=== PATIENT | female | born 1995 | race Caucasian/White ===

== ENCOUNTER 2021-02-02 20:27 | Emergency (ER) | payer MEDICAID ==
[~2021-02-02] VITALS: Ht 170.2 cm; Wt 63.6 kg
[2021-02-02] MEDS ORDERED: meclizine 12.5mg tablet PO ONE (22:35)
[2021-02-02] MEDS ORDERED: ondansetron 4mg rapidly disintigrating tab PO ONE (22:35)
[2021-02-02 23:51] LABS: URINE HCG NEGATIVE (NEG)
[2021-02-02 23:52] LABS: CLARITY,URINE CLEAR (Clear); COLOR,URINE YELLOW (Yellow); GLUCOSE, URINE NEGATIVE (Neg); KETONES,URINE TRACE mg/dl (Neg); LEUKOCYTE ESTERASE ,URINE TRACE (Neg); NITRITES, URINE NEGATIVE (Neg); OCCULT BLOOD,URINE NEGATIVE (Neg); PROTEIN,URINE NEGATIVE (Neg); UROBILINOGEN,URINE 0.2 E.U/dL (0.2-1.0)
[2021-02-02 23:54] LABS: UA COLLECTION TYPE CLN CATCH MIDSTREAM
[2021-02-02 23:55] LABS: BACTERIA,URINE NONE SEEN /HPF (Neg); RBC,URINE NONE SEEN /HPF (0-2); SQUAMOUS EPITHELIAL CELL,UR FEW /LPF (FEW); WBC,URINE 0-4 /HPF (0-4)
[2021-02-03] MEDS ORDERED: MECL-226 PO (00:06)
[2021-02-03] MEDS ORDERED: ONDA4TAB6 PO (00:06)
[2021-02-03 00:30] VITALS: BP 117/79
== END 2021-02-03 00:33 | disposition home or self-care (01) ==
LOC: ER 20:28
DX: H81.10 Benign paroxysmal vertigo, unspecified ear (principal); R11.0 Nausea; R51.9 Headache, unspecified; Z88.8 Allergy status to other drugs, medicaments and biological substances; Z79.899 Other long term (current) drug therapy
CPT/HCPCS: 81001; 81025; 87088; 99283; J8597

== ENCOUNTER 2022-12-14 15:41 | Emergency (ER) | payer MEDICAID ==
[~2022-12-14] VITALS: Ht 170.2 cm; Wt 65.9 kg
[~2022-12-14 15:41] MED LIST: MECL-226 PO; ONDA4TAB6 PO
[2022-12-14] MEDS ORDERED: ibuprofen tablet 400 MG TABLET PO ONE (17:15)
--- NOTE | 2022-12-14 17:21 | NUR ---
patient admitted into room 14.oriented to room.goes by Bryan and he/him pronouns. able to answer all questions appropriately.
[2022-12-14 17:33] LABS: BASOPHILS % (AUTO) 0.3 % (0-1); EOSINOPHILS # (AUTO) 0.1 X10'3 (0-0.9); EOSINOPHILS % (AUTO) 1.2 % (0-6); HEMOGLOBIN 14.2 g/dl (12.0-16.0); LYMPHOCYTES # (AUTO) 1.1 X10'3 (1.1-4.8); LYMPHOCYTES % (AUTO) 19.3 % (21-51); MEAN CORPUSCULAR HEMOGLOBIN 30.8 PG (27.0-31.0); MEAN CORPUSCULAR HGB CONC 33.8 g/dL (33.0-36.5); MEAN CORPUSCULAR VOLUME 91.1 FL (78-98); MEAN PLATELET VOLUME 7.3 FL (7.4-10.4); MONOCYTES # (AUTO) 0.5 X10'3 (0-0.9); MONOCYTES % (AUTO) 8.1 % (2-12); NEUTROPHILS # (AUTO) 4.1 X10'3 (1.8-7.7); NEUTROPHILS % (AUTO) 71.1 % (42-75); PLATELET COUNT 212 X10'3 (140-440); RED BLOOD COUNT 4.61 X10'6 (4.20-5.60); RED CELL DISTRIBUTION WIDTH 12.8 % (11.5-14.5); WHITE BLOOD COUNT 5.8 X10'3 (4.5-11.0)
[2022-12-14 17:45] LABS: CLARITY,URINE CLOUDY (Clear); COLOR,URINE YELLOW (Yellow); GLUCOSE, URINE NEGATIVE (Neg); KETONES,URINE NEGATIVE (Neg); LEUKOCYTE ESTERASE ,URINE NEGATIVE (Neg); NITRITES, URINE NEGATIVE (Neg); OCCULT BLOOD,URINE NEGATIVE (Neg); PROTEIN,URINE NEGATIVE (Neg); UROBILINOGEN,URINE 0.2 E.U/dL (0.2-1.0)
[2022-12-14 17:46] LABS: UA COLLECTION TYPE CLN CATCH MIDSTREAM
[2022-12-14 17:46] LABS: ALANINE AMINOTRANSFERASE 21 U/L (12-78); ALBUMIN/GLOBULIN RATIO 1.1 (1.1-1.5); ALKALINE PHOSPHATASE 87 IU/L (46-116); ANION GAP 6 (8-16); ASPARTATE AMINO TRANSFERASE 14 U/L (10-37); BILIRUBIN,TOTAL 0.2 MG/DL (0.1-1.0); BLOOD UREA NITROGEN 12 MG/DL (7-18); BUN/CREATININE RATIO 12.5 (10.0-20.0); CALCIUM 8.7 MG/DL (8.5-10.1); CHLORIDE 105 MMOL/L (99-107); CREATININE 0.96 MG/DL (0.40-0.90); GLUCOSE 100 MG/DL (70-104); POTASSIUM 4.4 MMOL/L (3.5-5.1); SODIUM 138 MMOL/L (135-145); TOTAL CARBON DIOXIDE 27.3 MMOL/L (24-32); TOTAL PROTEIN 7.5 G/DL (6.4-8.2); eGFR 70 ML/MIN
--- NOTE | 2022-12-14 17:50 | NUR ---
Patient in bed, green scrubs put on. all belongings are currently with patient which is clothes and phone no other belongings brought. pt gf at bedside. call light in place. will report to night nurse.
[2022-12-14 17:55] LABS: ETHANOL < 0.010 GM/DL (0.0-0.010)
[2022-12-14 17:56] LABS: MUCUS STRANDS MANY /LPF (Neg); SQUAMOUS EPITHELIAL CELL,UR MANY /LPF (FEW)
[2022-12-14 17:57] LABS: BACTERIA,URINE FEW /HPF (Neg); RBC,URINE 0-2 /HPF (0-2); WBC,URINE 0-4 /HPF (0-4)
[2022-12-14 17:58] LABS: URINE AMPHETAMINE SCREEN NEGATIVE (Neg); URINE BARBITUATE SCREEN NEGATIVE (Neg); URINE BENZODIAZEPINES SCREEN NEGATIVE (Neg); URINE CANNABINOID SCREEN POSITIVE (Neg); URINE COCAINE SCREEN NEGATIVE (Neg); URINE METHADONE SCREEN NEGATIVE (Neg); URINE OPIATE SCREEN NEGATIVE (Neg); URINE PHENCYCLIDINE SCREEN NEGATIVE (Neg)
[2022-12-14] MEDS ORDERED: nicotine 21mg patch - 24 hr TD ONE (18:50)
--- NOTE | 2022-12-14 19:21 | NUR ---
pt lying in bed with eyes closed and no distress noted.
--- NOTE | 2022-12-14 21:39 | NUR ---
PT LAYING IN BED ON LEFT SIDE RESTING WITH EYES CLOSED.
--- NOTE | 2022-12-14 22:30 | NUR ---
pt lying in bed on her back with her eyes open
[2022-12-14] MEDS ORDERED: duloxetine 20mg capsule.DR PO SCH (22:40)
--- NOTE | 2022-12-14 23:29 | NUR ---
pt lying on her bed in her room
--- NOTE | 2022-12-14 23:53 | NUR ---
The patient moved to bed 27. She is a female who is transitioning to male. Wants male pronouns and to be called Reiz. He was irritable. He is complaining of left knee pain. He was able to state what medications he takes but was unable to state the doses.
[2022-12-15] MEDS ORDERED: NICOTINE POLACRILEX 2 MG LOZENGE BC PRN ×2 (00:05→00:15)
[2022-12-15] MEDS ORDERED: acetaminophen 325mg tablet PO PRN (00:05)
[2022-12-15] MEDS ORDERED: DULO30CA52 PO ×2 (00:44)
[2022-12-15] MEDS ORDERED: BUSP15TA3 PO (00:44)
[2022-12-15] MEDS ORDERED: BACL10TA2 PO (00:44)
[2022-12-15] MEDS ORDERED: LAMO150T6 PO (00:45)
--- NOTE | 2022-12-15 01:18 | NUR ---
The patient is pacing around by the bed. They are refusing to take a covid test. counter former made aware. MD was made aware that the patient was requesting sleep medication and she stated that she would review the chart.
--- NOTE | 2022-12-15 01:27 | NUR ---
Patient given a mask and requested to use it.
--- NOTE | 2022-12-15 01:28 | NUR ---
Packet sent to [facility]
[2022-12-15] MEDS ORDERED: LORazepam 1 MG tablet PO ONE (01:40)
[2022-12-15] MEDS ORDERED: busPIRone 15mg tablet PO STA (01:48)
[2022-12-15] MEDS ORDERED: lamoTRIgine 100mg tablet PO STA (01:48)
[2022-12-15] MEDS ORDERED: baclofen 10mg tablet PO PRN (02:05)
--- NOTE | 2022-12-15 02:06 | NUR ---
The patient took medications. He agreed to a covid test and is now resting on his bed trying to sleep
--- NOTE | 2022-12-15 03:28 | NUR ---
The patient appears to be sleeping
[2022-12-15 06:18] VITALS: BP 91/60
[2022-12-15] MEDS ORDERED: duloxetine 30mg CAPSULE.DR PO SCH ×2 (08:00→21:00)
[2022-12-15] MEDS ORDERED: busPIRone 15mg tablet PO SCH (08:00)
--- NOTE | 2022-12-15 09:25 | NUR ---
Anthony BEASLEY, evaluating patient. No distress observed.
--- NOTE | 2022-12-15 09:25 | NUR ---
Maynor grewal in [facility] - 12/15/22 at 0939 by TRICIA Anthony BEASLEY evqa
--- NOTE | 2022-12-15 09:25 | NUR ---
RAMOS, yeimy Cruz
--- NOTE | 2022-12-15 10:26 | NUR ---
[facility] met with patient. Patient is stating he will leave unless we let him smoke. is on her way to meet and make a plan for care.
[2022-12-15] MEDS ORDERED: lamoTRIgine 100mg tablet PO SCH (21:00)
== END 2022-12-15 11:57 | disposition home or self-care (01) ==
LOC: ER 15:42
DX: R45.851 Suicidal ideations (principal); Z20.822 Contact with and (suspected) exposure to COVID-19; F17.200 Nicotine dependence, unspecified, uncomplicated; F12.90 Cannabis use, unspecified, uncomplicated; F10.10 Alcohol abuse, uncomplicated; M79.7 Fibromyalgia; Z79.899 Other long term (current) drug therapy; Z88.8 Allergy status to other drugs, medicaments and biological substances; Y90.9 Presence of alcohol in blood, level not specified
CPT/HCPCS: 36415; 80053; 80305; 80320; 81001; 84443; 85025; 87811; 99285

== ENCOUNTER 2023-06-19 11:32 | Emergency (ER) | payer MEDICAID ==
[~2023-06-19] VITALS: Ht 170.2 cm; Wt 62.4 kg
[~2023-06-19 11:32] MED LIST changes: +BACL10TA2 PO; +BUSP15TA3 PO; +DULO30CA52 PO; +LAMO150T6 PO; -MECL-226 PO; -ONDA4TAB6 PO
[2023-06-19 11:34] VITALS: BP 109/64; PULSE 75; RESP 16; TEMP 98.8; O2SAT 99
--- NOTE | 2023-06-19 23:18 | NUR ---
patient d/c on day shift. unable to appropriately review assesments.
== END 2023-06-19 13:07 | disposition home or self-care (01) ==
LOC: ER 11:33
DX: S60.221A Contusion of right hand, initial encounter (principal); F12.90 Cannabis use, unspecified, uncomplicated; Z88.8 Allergy status to other drugs, medicaments and biological substances; Z79.899 Other long term (current) drug therapy; X58.XXXA Exposure to other specified factors, initial encounter; Y93.89 Activity, other specified; Y92.89 Other specified places as the place of occurrence of the external cause; Y99.8 Other external cause status
CPT/HCPCS: 29125; 73110; 73130; 99284